=== PATIENT | female | born 1945 | race Caucasian/White ===

== ENCOUNTER → 2025-10-15 12:39 | Outpatient (REF) | payer MEDICARE, SELFPAY ==
[2025-10-15 14:18] LABS: Urine Character Slightly Cloudy (Clear)
[2025-10-15 15:12] LABS: Urine Squamous Cell >30 /LPF (Few); Urine White Cell 90-100 /HPF (0-5)
== END ==
LOC: REG 12:39
PROVIDERS: ATTENDING PHYSICIAN Nurse Practitioner Adult Health
DX: N39.0 Urinary tract infection, site not specified (principal)
CPT/HCPCS: 81003; 81015; 87077; 87086; 87186